=== PATIENT | male | born 1995 | race Hispanic/Latino ===

== ENCOUNTER 2017-08-15 21:58 | Emergency (ER) | payer SELFPAY ==
[2017-08-15] MEDS ORDERED: Oseltamivir 75 MG CAP ONE (22:39)
== END 2017-08-15 22:47 | disposition home or self-care (01) ==
LOC: SCSER 21:58
DX: J11.1 Influenza due to unidentified influenza virus with other respiratory manifestations (principal)
CPT/HCPCS: 99283

== ENCOUNTER 2017-11-04 03:48 | Emergency (ER) | payer OTHER, SELFPAY ==
[2017-11-04 04:10] LABS: #Basophils 0.1 thou/uL (0.0-0.2); #Eosinphils 0.1 thou/uL (0.0-0.7); #Lymphocytes 3.3 thou/uL (1.20-3.40); #Monocytes 0.4 thou/uL (0.11-0.59); #Neutrophils 3.2 thou/uL (1.40-6.50); %Basophils 1.1 % (0.0-1.0); %Eosinophils 1.9 % (0.0-10.0); %Lymphocytes 46.7 % (21.0-51.0); %Monocytes 5.2 % (0.0-10.0); %Neutrophils 45.1 % (42.0-75.0); Hemoglobin 14.6 g/dL (14.0-18.0); Mean Corpuscular HGB CONC 34.6 g/dL (32.0-36.0); Mean Corpuscular Hemoglobin 28.7 pg (27.0-31.0); Mean Corpuscular Volume 83.1 fl (80.0-94.0); Mean Platelet Volume 6.2 fL (7.4-10.4); Platelet Count 422 thou/uL (130-400); RBC Distribution Width 11.6 % (11.5-14.5); Red Blood Cell (RBC) Count 5.09 mill/uL (4.70-6.10); White Blood Cell (WBC) Count 7.1 thou/uL (4.8-10.8)
[2017-11-04 04:18] LABS: INR-International Normal Ratio 1.1; PTT 30.1 SEC (22.9-36.1); Prothrombin Time 14.2 SEC (12.0-14.7)
[2017-11-04 04:20] LABS: ALT (SGPT) 30 U/L (8-55); AST (SGOT) 30 U/L (5-34); Alcohol 229 mg/dL (Less than 10); Alkaline Phosphatase 91 U/L (40-150); Anion Gap 15 mmol/L (10-20); BUN (Urea Nitrogen) 12 mg/dL (8.9-20.6); Bilirubin, Total 0.5 mg/dL (0.2-1.2); Calc. Creatinine Clearance 0 mL/min (70-130); Calcium 9.3 mg/dL (7.8-10.44); Carbon Dioxide 27 mmol/L (22-29); Chloride 104 mmol/L (98-107); Estimated GFR-MDRD Greater than 90; Globulin 2.8 g/dL (2.4-3.5); Glucose 100 mg/dL (70-105); Potassium 3.6 mmol/L (3.5-5.1); Protein, Total 7.8 g/dL (6.0-8.3); Sodium 142 mmol/L (136-145)
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
== END 2017-11-04 05:51 | disposition home or self-care (01) ==
LOC: ERS 03:48
DX: S60.511A Abrasion of right hand, initial encounter (principal); F10.129 Alcohol abuse with intoxication, unspecified; V49.9XXA Car occupant (driver) (passenger) injured in unspecified traffic accident, initial encounter
CPT/HCPCS: 70450; 71260; 72125; 74177; 80053; 80307; 85025; 85610; 85730; 96360; G0390

== ENCOUNTER 2019-04-06 14:48 | Emergency (ER) | payer OTHER ==
[2019-04-06 15:13] LABS: #Basophils 0.1 thou/uL (0.0-0.2); #Eosinphils 0.2 thou/uL (0.0-0.7); #Monocytes 0.6 thou/uL (0.11-0.59); #Neutrophils 4.3 thou/uL (1.40-6.50); %Basophils 0.9 % (0.0-1.0); %Eosinophils 1.9 % (0.0-10.0); %Lymphocytes 37.2 % (21.0-51.0); %Monocytes 7.7 % (0.0-10.0); %Neutrophils 52.4 % (42.0-75.0); Hemoglobin 14.9 g/dL (14.0-18.0); Mean Corpuscular HGB CONC 33.3 g/dL (32.0-36.0); Mean Corpuscular Hemoglobin 27.8 pg (27.0-31.0); Mean Corpuscular Volume 83.4 fL (78.0-98.0); Mean Platelet Volume 6.4 fL (7.4-10.4); Platelet Count 395 thou/uL (130-400); RBC Distribution Width 11.1 % (11.5-14.5); Red Blood Cell (RBC) Count 5.36 mill/uL (4.70-6.10); White Blood Cell (WBC) Count 8.2 thou/uL (4.8-10.8)
[2019-04-06 15:34] LABS: ALT (SGPT) 32 U/L (8-55); AST (SGOT) 24 U/L (5-34); Albumin 5.2 g/dL (3.5-5.0); Alkaline Phosphatase 87 U/L (40-150); Anion Gap 14 mmol/L (10-20); BUN (Urea Nitrogen) 17 mg/dL (8.9-20.6); Bilirubin, Total 0.7 mg/dL (0.2-1.2); Calc. Creatinine Clearance 0 mL/min (70-130); Calcium 10.4 mg/dL (7.8-10.44); Carbon Dioxide 27 mmol/L (22-29); Chloride 103 mmol/L (98-107); Estimated GFR-MDRD Greater than 90; Globulin 2.6 g/dL (2.4-3.5); Glucose 93 mg/dL (70-105); Protein, Total 7.8 g/dL (6.0-8.3); Sodium 140 mmol/L (136-145)
--- NOTE | 2019-04-06 15:46 | RAD ---
PORTABLE CHEST ONE VIEW: 04/06/2019 3:24 p.m. HISTORY: Chest pain. FINDINGS: The heart size is normal. The lungs are clear. The bony thorax is normal. IMPRESSION: Normal examination. POS: [facility]
[2019-04-06 16:54] LABS: Bilirubin Negative (Negative); Blood, Urine Negative (Negative); Clarity Clear (Clear); Glucose, Urine (Dipstick) Normal (Negative); Leukocyte Negative Leu/uL (Negative); Nitrite Negative (Negative); Protein, Urine (Dipstick) 10 mg/dL (Neg-Trace); Urobilinogen Normal mg/dL (Less than 2)
== END 2019-04-06 16:53 | disposition home or self-care (01) ==
LOC: ERS 14:48
DX: R07.89 Other chest pain (principal)
CPT/HCPCS: 36415; 71045; 80053; 81003; 82550; 84484; 85025; 93005

== ENCOUNTER 2021-01-24 17:19 | Emergency (ER) | payer OTHER ==
[2021-01-24] MEDS ORDERED: traMADol HCl 50 MG TAB ONE (18:27)
== END 2021-01-24 18:35 | disposition home or self-care (01) ==
LOC: ERS 17:19
DX: S90.32XA Contusion of left foot, initial encounter (principal); S90.02XA Contusion of left ankle, initial encounter; W01.0XXA Fall on same level from slipping, tripping and stumbling without subsequent striking against object, initial encounter

== ENCOUNTER 2022-05-12 15:43 | Emergency (ER) | payer SELFPAY | END 2022-05-12 18:03 | disposition home or self-care (01) | LOC: ERS 15:43 | DX: S51.011A Laceration without foreign body of right elbow, initial encounter (principal); W26.8XXA Contact with other sharp object(s), not elsewhere classified, initial encounter | CPT/HCPCS: 99282 ==

== ENCOUNTER 2022-05-23 13:49 | Emergency (ER) | payer SELFPAY ==
[2022-05-23] MEDS ORDERED: Acetaminophen 500 MG TAB ONE (15:14)
== END 2022-05-23 16:13 | disposition home or self-care (01) ==
LOC: ERS 13:49
DX: J06.9 Acute upper respiratory infection, unspecified (principal); Z20.822 Contact with and (suspected) exposure to COVID-19
CPT/HCPCS: 87804; 99283; U0003; U0005